=== PATIENT | male | born 1955 | race Caucasian/White ===

== ENCOUNTER 2019-09-25 05:36 | Observation (INO) | payer OTHER ==
[2019-09-20 10:25] LABS: BASOPHILS # (AUTO) 0.1 (0.0-0.1); BASOPHILS % 0.9 % (0.0-1.0); EOSINOPHILS # (AUTO) 0.1 (0.0-0.4); HEMOGLOBIN 16.6 g/dL (14.0-18.0); LYMPHOCYTES # (AUTO) 1.3 (1.0-3.2); LYMPHOCYTES % 23.4 % (18.0-39.1); MEAN CORPUSCULAR HGB CONC 34.6 g/dL (31-35); MEAN CORPUSCULAR VOLUME 81.1 fL (81-99); MONOCYTES # (AUTO) 0.6 (0.2-0.8); MONOCYTES % 10.3 % (4.4-11.3); NEUTROPHILS # (AUTO) 3.5 (2.1-6.9); PLATELET COUNT 218 x10e3/uL (140-360); RED BLOOD COUNT 5.92 x10e6/uL (4.3-5.7); RED CELL DISTRIBUTION WIDTH 12.9 % (11.7-14.4)
[2019-09-20 10:40] LABS: ALBUMIN 4.5 g/dL (3.5-5.0); ALBUMIN/GLOBULIN RATIO 1.4 (0.8-2.0); ANION GAP 12.7 mmol/L (8-16); CALCIUM 9.7 mg/dL (8.4-10.2); CREATININE, SERUM 1.38 mg/dL (0.72-1.25); POTASSIUM 4.7 mmol/L (3.5-5.1)
--- NOTE | 2019-09-20 11:19 | Diagnostic Imaging Report ---
EXAMINATION: CHEST 2 VIEWS INDICATION: Pre-operative COMPARISON: None FINDINGS: LINES/TUBES:None LUNGS:The lungs are well-inflated. No focal consolidation or pulmonary edema. PLEURA:No pleural effusion or pneumothorax. MEDIASTINUM:The cardiomediastinal silhouette appears normal in size and shape. BONES/SOFT TISSUES:No acute osseous injury. Partially visualized cervical spine fusion hardware. ABDOMEN:No free air under the diaphragm. IMPRESSION: No focal pneumonia or pulmonary edema. Signed by: Alfred Zimmer MD on 09/20/2019 11:15 AM
[~2019-09-25] VITALS: Ht 180.3 cm; Wt 97.5 kg
[~2019-09-25 05:36] MED LIST: DOXYCYCLINE HY100 MG PO; [UNRECOGNIZED DRUG - OTHER]
[2019-09-25] MEDS ORDERED: CEFAZOLIN SOD 1 GM/NS 50ML 100 ML IV ONE (06:09)
[2019-09-25] MEDS ORDERED: ALLEGRA-D 24 H1 EACH (06:26)
[2019-09-25] MEDS ORDERED: [UNRECOGNIZED DRUG - OTHER] (06:32)
[2019-09-25] MEDS ORDERED: BUPIVACAINE 0.25%/EPI 30ML SDV INJ ONE (07:25)
[2019-09-25] MEDS ORDERED: B&O 60MG R/S 60 MG SUPP PR ONE ×2 (08:00→16:45)
[2019-09-25] MEDS ORDERED: ACETAMINOPHEN 1000 MG/100 ML 100 ML IV ONE (08:55)
--- NOTE | 2019-09-25 10:12 | Operative Report ---
DATE OF PROCEDURE: 09/25/2019 SURGEON: Manjit Sarah MD PREOPERATIVE DIAGNOSES: Cholecystitis and cholelithiasis. POSTOPERATIVE DIAGNOSES: Cholecystitis and cholelithiasis. OPERATION PERFORMED: Laparoscopic cholecystectomy. SOFTWARE SUPPORT SPECIALIST: Raymond Sarah MD. ANESTHESIA: General endotracheal. COMPLICATIONS: None. ESTIMATED BLOOD LOSS: Minimal. DESCRIPTION OF PROCEDURE: With the patient lying in bed in the supine position under good general endotracheal anesthesia, the abdomen was prepped with Betadine solution and draped in the usual manner. A Veress needle was introduced into the umbilicus and pneumoperitoneum was established without any difficulty. An 11 mm trocar was placed into the umbilicus and a 10 mm video laparoscope was placed into the intra-abdominal cavity. Under direct vision, three 5 mm trocars were placed in the right subcostal region. Video laparoscopy at this point revealed no abnormalities to the intra-abdominal cavity except for the gallbladder that had some adhesions in its lower half. The peritoneum overlying the neck of the gallbladder was then opened and all the adhesions to the gallbladder were taken down. The cystic duct was identified and followed to its junction with the common duct. The cystic artery came in an anterior position to the cystic duct. The cystic artery was then circumferentially dissected and doubly clipped and divided. After this was done, the cystic duct was followed to its junction with the common duct. Cystic duct was then circumferentially dissected away from the common duct, doubly clipped, and divided. The gallbladder was then slowly and carefully taken off the liver bed. There was a posterior branch of the cystic artery in the liver bed, which was ligated with clips. Gallbladder was totally and completely taken off the liver bed using the cautery scissors and perfect hemostasis was ascertained. The gallbladder was then grasped through the umbilical port and removed without any difficulty. Video laparoscopy was then again carried out. The liver bed was found to be perfectly dry. All the excess fluid was aspirated. The pneumoperitoneum was evacuated and all the trocars were removed under direct vision. The midline fascia at the umbilicus was then closed with a [id number] of 0 Vicryl. All layers were infiltrated on the way out with solution of 0.25% Marcaine. Subcutaneous tissue was approximated with 3-0 Vicryl and the skin was closed with subcuticular 5-0 Vicryl. Benzoin, Steri-Strips, and Band-Aids were applied. The sponge, lap, and needle count was correct. The patient tolerated the procedure well and the case was then turned over to Dr. Kim for his performance of a prostatectomy. MD WILL Underwood/CYNDEE /[id number]
--- OUTSIDE RECORDS SUMMARY | 2019-09-25 16:28 | XMS REPORT | Continuity of Care Document ---
Author Author [facility] t Organization [facility] Address [address] [place] [address] Dr. Almanzar [address] [place] [phone] Phone Unavailable Care Team Providers Care Scrap Preparation Supervisor Name Role Phone Liz FLOYD Attphys Unavailable Problems This patient has no known problems. Allergies, Adverse Reactions, Alerts This patient has no known allergies or adverse reactions. Medications This patient has no known medications. Procedures This patient has no known procedures. Results Test Description Test Time Test Comments Results Result Comments Source CHEST 2 VIEWS 2019-09-20 11:15:00 [place] [address] Patient Name: CIPRIANO ARNOLD MR #: [id number] : 1955 Age/Sex: 63/M Req #: [id number] Adm Physician: Ordered by: ARMOND FLOYD MD Report #: [id number] Location: OR Room/Bed: Procedure: [id number] DX/CHEST 2 VIEWS Exam Date: 09/20/19 Exam Time: 1050 REPORT STATUS: Signed EXAMINATION: CHEST 2 VIEWS INDICATION: Pre-operative COMPARISON: None FINDINGS: LINES/TUBES:None LUNGS:The lungs are well-inflated. No focal consolidation or pulmonary edema. PLEURA:No pleural effusion or pneumothorax. MEDIASTINUM:The cardiomediastinal silhouette appears normal in size and shape. BONES/SOFT TISSUES:No acute osseous injury. Partially visualized cervical spine fusion hardware. ABDOMEN:No free air under the diaphragm. IMPRESSION: No focal pneumonia or pulmonary edema. Signed by: Fidencio Guzman MD on 09/20/2019 11:15 AM Dictated By: FIDENCIO GUZMAN MD 111 Transcribed By: PASQUALE on 09/20/191114 COPY TO: ARMOND FLOYD MD
[2019-09-25 16:34] VITALS: BP 133/80
[2019-09-25] MEDS ORDERED: ONDANSETRON HCL INJ 2MG/ML 2ML 2 MG/ML VIAL IV PRN (16:45)
[2019-09-25] MEDS ORDERED: HYDROCODONE/APAP 10MG-325MG TAB PO PRN (16:45)
[2019-09-25 17:02] VITALS: BP 133/80
[2019-09-25] MEDS ORDERED: HYDROMORPHONE 1MG/1ML INJ IV PRN (17:15)
[2019-09-25 17:27] VITALS: BP 133/80
[2019-09-25] MEDS: DOXYCYCLINE HYCLATE TABLET 100 MG TAB PO SCH (17:44)
[2019-09-25] MEDS: DEXTROSE 5%/0.45% SOD CHL 1,000 ML IV SCH (17:44)
--- NOTE | 2019-09-25 18:44 | NUR ---
WALKING ROUNDS PERFORMED, RECEIVED PT LAYING SEMI FOWLERS IN BED, AAOX3, RR EVEN AND NON-LABORED, ON ROOM AIR. NO S/SX OF DISTRESS NOTED. HARLEY TO GRAVITY. TROCAR SITES TO ANTERIOR ABD NOTED TO BE CDI. LEFT PT LAYING SEMI FOWLERS IN BED, BED IN LOW LOCKED POSITION, SIDE RAILS UPX2, CALL LIGHT AND PHONE WITHIN REACH.
[2019-09-25 20:00] VITALS: BP 141/96
[2019-09-25] MEDS: HYDROCODONE/APAP 10MG-325MG TAB PO PRN (20:12)
[2019-09-25 21:44] VITALS: BP 141/96
[2019-09-25] MEDS: B&O 60MG R/S 60 MG SUPP PR SCH (23:20)
[2019-09-26] VITALS: BP 147/90
[2019-09-26] MEDS: DEXTROSE 5%/0.45% SOD CHL 1,000 ML IV SCH (02:11)
[2019-09-26 04:00] VITALS: BP 128/71
[2019-09-26] MEDS: B&O 60MG R/S 60 MG SUPP PR SCH ×2 (05:31→11:50)
[2019-09-26 07:27] VITALS: BP 113/76
[2019-09-26 07:56] VITALS: BP 113/76
[2019-09-26] MEDS: DOXYCYCLINE HYCLATE TABLET 100 MG TAB PO SCH (08:19)
[2019-09-26] MEDS: HYDROCODONE/APAP 10MG-325MG TAB PO PRN (10:44)
[2019-09-26] MEDS ORDERED: ONDANSETRON HCL 4 MG ORAL DISINTEGRATING TAB PO PRN (10:45)
[2019-09-26 11:11] VITALS: BP 145/84
--- NOTE | 2019-09-26 12:48 | NUR ---
Pt discharged home at this time. Pt education was done with patient related to cao catheter and drain bags. Pt was able to properly demonstrate cao bag usage. Pt verbalized understanding of all discharge instructions and follow up appointments. 0 s/s of acute distress noted at time of discharge.
[2019-09-26] MEDS ORDERED: LIDOCAINE HCL 2% LOCAL INJ 5 ML SDV VIAL INJ ONE (12:56)
[2019-09-26] MEDS ORDERED: PROPOFOL IV EMULSION 10 MG/ML 20 ML VIAL IV ONE (12:56)
[2019-09-26] MEDS ORDERED: GLYCOPYRROLATE INJ 0.2 MG/ML VIAL IV ONE ×2 (12:56)
[2019-09-26] MEDS ORDERED: SEVOFLURANE INHAL SOLN 250 ML PEN BTL INH ONE (12:56)
[2019-09-26] MEDS ORDERED: EPHEDRINE SULFATE INJ 50 MG/ML VIAL IV ONE (12:56)
[2019-09-26] MEDS ORDERED: LABETALOL HCL 5 MG/ML 20ML VIAL IV ONE (12:56)
[2019-09-26] MEDS ORDERED: NEOSTIGMINE 1 MG/ML 10ML VIAL IV ONE (12:56)
[2019-09-26] MEDS ORDERED: ONDANSETRON HCL INJ 2MG/ML 2ML 2 MG/ML VIAL IV ONE (12:56)
[2019-09-26] MEDS ORDERED: DEXAMETHASONE SOD PHOS INJ 4 MG/ML VIAL IV ONE (12:56)
--- NOTE | 2019-09-26 17:25 | Operative Report ---
DATE OF PROCEDURE: 09/25/2019 SURGEON: Reji Kim MD PREOPERATIVE DIAGNOSES: Benign prostatic hyperplasia and gallbladder stones. POSTOPERATIVE DIAGNOSES: Benign prostatic hyperplasia, gallbladder stones, urethral meatal stenosis. OPERATIONS PERFORMED: Urethral dilatation, cystourethroscopy, transurethral resection of prostate with electrovaporization with plasma button by me, Dr. Reji Kim, who is the surgeon; and Dr. Manjit Sarah did a laparoscopic cholecystectomy. 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 Rest of the urethra is normal. He has trilobar hyperplasia with intravesical component. Grade 2 trabeculation with saccules and cellules of the bladder. He also was found to have prostatic calculi. PROCEDURE IN DETAIL: With the patient under satisfactory general anesthetic, the patient was transferred from the open room to the cysto room after undergoing successful laparoscopic cholecystectomy by Dr. Manjit Sarah. The patient was placed in the supine position on the operating table. Legs were placed on stirrups. Genitalia was then prepped with pHisoHex solution and draped in usual manner. Cystoscopy was found that he had a fossa navicularis stenosis dilated to a size 32, and then I was able to pass the 22-Chinese cystourethroscope with a 12 and 70-degree angle lens with no problem to inspect the bladder and the prostate. Once this was done, the resectoscope was placed in, I used bipolar energy with normal saline. Resection was started at the bladder neck, resecting the intravesical component first. The resection was then done from bladder neck to the verumontanum in two stages and the prostatic urethra was quite long. Resection was carried down posteriorly until saw stones in the prostate, then I continue and did the lateral aspect of the prostate next, particularly the right side. Anteriorly, the patient had very little growth of the prostate. After resecting approximately 15 to 20 g and the patient having quite a bit of bleeding, I decided to remove the prostatic chips from the bladder using the Jj evacuator and then used the plasma button to electrovaporate the remaining prostatic tissue and obtain good hemostasis. Once that was done, then I inspected the bladder again as well as the prostate had good resection, and at that point, I removed the instruments and placed in a #22-Chinese Bee catheter, 30 mL balloon, which I inflated inside the bladder. After that was done, then I irrigated the bladder until the return was clear. At that point, I put a catheter to a Bee bag and moved the patient to the recovery room in satisfactory condition after placed a B and O suppository in the rectum. DISCHARGE INSTRUCTIONS: The patient spent the night in the hospital. If he needed the irrigation, his bladder was irrigated. He was given B and O suppository to control pain and discomfort. The patient had clear liquids and if he had no problems with nausea or vomiting, the patient was then discharged home the next day. He was discharged on gabapentin, tramadol, and doxycycline. He is to have full liquid diet on the day of discharge and by the following day, he can return to normal diet. After that, I will see him in the office to remove his Bee catheter in three days, and he will follow up with Dr. Sarah as well. If the patient had to stay longer for any further particular reason, a separate dictation will be made to explain why the patient stayed a 2nd day. Reji Kim MD RRG/MODL /[id number] cc: Manjit Sarah MD
== END 2019-09-26 12:57 | disposition home or self-care (01) ==
LOC: OR 05:36 → PACU V 16:26 → MED/SURG 16:30
PROVIDERS: ADMIT Urology; ATTEND Urology
DX: N40.0 Benign prostatic hyperplasia without lower urinary tract symptoms (principal); N35.911 Unspecified urethral stricture, male, meatal; K80.10 Calculus of gallbladder with chronic cholecystitis without obstruction; Z11.59 Encounter for screening for other viral diseases; F41.9 Anxiety disorder, unspecified; Z01.812 Encounter for preprocedural laboratory examination
CPT/HCPCS: 36415; 47562; 52601; 71046; 80053; 85025; 87086; 88304; 88305; 93005; C1766; G0378 ×2; J0131; J0690; J1100; J2001; J2405; J2704; J2710; J3490; U0002